=== PATIENT | male | born 1960 | race African-American/Black ===

== ENCOUNTER 2019-12-03 20:07 | Emergency (ER) | payer SELFPAY ==
[~2019-12-03] VITALS: Ht 165.1 cm; Wt 56.7 kg
[2019-12-03 20:07] VITALS: BP 132/72
[2019-12-03] MEDS ORDERED: ONDANSETRON 4 MG TAB.RAPDIS SL ONE (20:30)
[2019-12-03] MEDS ORDERED: ONDANSETRON 4 MG TAB.RAPDIS ONE (20:33)
== END 2019-12-03 21:03 | disposition home or self-care (01) ==
LOC: ER 20:10
DX: R11.2 Nausea with vomiting, unspecified (principal); Z59.0 Homelessness
CPT/HCPCS: 99283; Q0162